=== PATIENT | male | born 1965 | race Caucasian/White ===

== ENCOUNTER 2018-02-12 12:31 | Emergency (ER) | payer MEDICARE ==
[2018-02-12 13:18] VITALS: BP 118/73
--- NOTE | 2018-02-12 14:50 | UC ---
Lower Extremity/Ankle HPI - HPI Summary HPI Summary: PT HAS BEEN CUTTING DOWN THE LATERAL SIDE OF RIGHT GREAT TOE NAIL TRYING TO GET RID OF THE SHARP EDGE. OVER THE PAST 2 WEEKS DEVELOPED REDNESS AND SWELLING OF TOE. NO FEVER. NO DRAINAGE. - History of Current Complaint Chief Complaint: UCSkin Stated Complaint: TOE SWELLING Time Seen by Provider: 02/12/18 14:03 Hx Obtained From: Patient, Family/Metal Sprayer Protective Coating - DAD Onset/Duration: Gradual Onset, Lasting Weeks, Still Present Severity Initially: Moderate Severity Currently: Moderate Pain Intensity: 7 Pain Scale Used: 0-10 Numeric Aggravating Factor(s): Standing, Ambulation Alleviating Factor(s): Rest Able to Bear Weight: Yes - Allergies/Home Medications Allergies/Adverse Reactions: Allergies Allergy/AdvReac Type Severity Reaction Status Date / Time No Known Allergies Allergy Verified 03/03/14 10:42 PMH/Surg Hx/FS Hx/Imm Hx Neurological History: Migraine Psychological History: Depression - Surgical History Surgical History: None - Family History Known Family History: Positive: Hypertension - Social History Alcohol Use: None Substance Use Type: None Smoking Status (MU): Never Smoked Tobacco Review of Systems Constitutional: Negative Skin: Other - ABSCESS RIGHT GREAT TOE Respiratory: Negative Cardiovascular: Negative Gastrointestinal: Negative All Other Systems Reviewed And Are Negative: Yes Physical Exam Triage Information Reviewed: Yes Appearance: Well-Appearing, No Pain Distress, Well-Nourished Vital Signs: Initial Vital Signs Temp 99.1 F 02/12/18 13:10 Pulse 78 02/12/18 13:10 Resp 16 02/12/18 13:10 BP 118/73 02/12/18 13:10 Pulse Ox 97 02/12/18 13:10 Vital Signs Reviewed: Yes Eyes: Positive: Conjunctiva Clear ENT: Positive: Hearing grossly normal Neck: Positive: Supple Respiratory: Positive: No respiratory distress, No accessory muscle use Cardiovascular: Positive: Pulses Normal Abdomen Description: Positive: Soft Musculoskeletal: Positive: Edema @ - RIGHT GREAT TOE Neurological: Positive: Alert Psychological: Positive: Age Appropriate Behavior Skin: Positive: Other - RIGHT GREAT TOE EDEMATOUS, ERYTHEMATOUS WITH GRANULOMATOUS TISSUE LATERAL NAIL BED. TTP Procedures - Incision and Drainage Right Toe Site: RIGHT GREAT TOE LATERAL NAILFOLD Instrument(s): Needle - 18 GAUGE Lower Extremity Course/Dx - Differential Dx/Diagnosis Provider Diagnoses: PARONYCHIA RIGHT GREAT TOE Discharge - Sign-Out/Discharge Documenting (check all that apply): Discharge/Admit/Transfer - Discharge Plan Condition: Stable Disposition: HOME Prescriptions: Cephalexin CAP* [Keflex 500 CAP*] 1,000 mg PO BID #28 cap Patient Education Materials: Parotiffanichimichelle (ED) Referrals: No Primary Care Phys,NOPCP [Primary Care Provider] - Additional Instructions: Hot soaks at least 4 times daily. Take antibiotic twice daily for full 7 days. Follow-up with a video producer. PODIATRY IN [facility] Dr. Sy Field [address] [place] Dr. Joel Gibbons. Please call his office at [phone] to make an appointment to be seen Dr. Hansel Real. Please call his office at [phone] to make an appointment to be seen CALL THE NUMBER BELOW FOR ASSISTANCE IN ESTABLISHING WITH A PCP An additional resource available to assist in finding the appropriate physician for your health care needs is the [facility] (Viviana Danielson). You may contact them by calling [phone]. - Billing Disposition and Condition Condition: STABLE Disposition: Home
--- NOTE | 2018-02-13 10:19 | PN ---
Progress Note - Progress Note Date of Service: 02/13/18 Note: patient would culture grew s aureus. patient placed on keflex. will wait for final culture for sensitivities.
--- NOTE | 2018-02-14 15:34 | UC ---
- Progress Note Progress Note: Patient wound growing MRSA (-) staph aureus and Group B Strep Agalactiae on Keflex will await sensitivity report Discharge - Sign-Out/Discharge Documenting (check all that apply): Post-Discharge Follow Up - Discharge Plan Condition: Stable Disposition: HOME Prescriptions: Cephalexin CAP* [Keflex 500 CAP*] 1,000 mg PO BID #28 cap Patient Education Materials: Paronychia (ED) Referrals: No Primary Care Phys,NOPCP [Primary Care Provider] - Additional Instructions: Hot soaks at least 4 times daily. Take antibiotic twice daily for full 7 days. 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 PODIATRY IN [facility] Dr. Sy Field [address] [facility] [address] Joel Gibbons. Please call his office at [phone] to make an appointment to be seen Dr. Hansel Real. Please call his office at [phone] to make an appointment to be seen CALL THE NUMBER BELOW FOR ASSISTANCE IN ESTABLISHING WITH A PCP An additional resource available to assist in finding the appropriate physician for your health care needs is the [facility] (Viviana Danielson). You may contact them by calling [phone]. - Billing Disposition and Condition Condition: STABLE Disposition: Home
== END 2018-02-12 14:56 | disposition home or self-care (01) ==
LOC: UCEAST 12:31
DX: L03.031 Cellulitis of right toe (principal); G43.909 Migraine, unspecified, not intractable, without status migrainosus; F32.9 Major depressive disorder, single episode, unspecified
CPT/HCPCS: 87070; 87205; 87640; 87641; 99202; G0463

== ENCOUNTER 2018-02-21 17:48 | Emergency (ER) | payer MEDICARE ==
[2018-02-21 18:10] VITALS: BP 124/81
--- NOTE | 2018-02-21 18:39 | UC ---
Elbow Pain - HPI Summary HPI Summary: c/ ingrown toe nail for the past week, second time at due to pain, has appointment with podiatry on march 01 but has continued to be painful after he completed course of keflex and pain/redness recurred. Denies chills, fever, states that he has been soaking toenail in warm water and sometimes there is discharge coming from the verge of the nailbed - History of Current Complaint Chief Complaint: UCLowerExtremity Stated Complaint: SWOLLEN FOOT Time Seen by Provider: 02/21/18 18:01 Hx Obtained From: Patient Onset/Duration: Days Severity Initially: Mild Severity Currently: Moderate Pain Intensity: 6 Location Of Pain: Is Discrete @ - big toe, right Character: Dull Aggravating Factor(s): Movement Alleviating Factor(s): Rest, Other - soaks Associated Signs And Symptoms: Positive: Negative - Allergies/Home Medications Allergies/Adverse Reactions: Allergies Allergy/AdvReac Type Severity Reaction Status Date / Time No Known Allergies Allergy Verified 02/21/18 18:10 PMH/Surg Hx/FS Hx/Imm Hx Previously Healthy: Yes - Surgical History Surgical History: None - Family History Known Family History: Positive: Hypertension - Social History Alcohol Use: None Substance Use Type: None Smoking Status (MU): Never Smoked Tobacco Review of Systems Constitutional: Negative Musculoskeletal: Edema, Other: - pain on nailbed All Other Systems Reviewed And Are Negative: Yes Physical Exam Triage Information Reviewed: Yes Appearance: Well-Appearing, No Pain Distress, Well-Nourished Vital Signs: Initial Vital Signs Temp 98.4 F 02/21/18 18:01 Pulse 62 02/21/18 18:01 Resp 18 02/21/18 18:01 BP 124/81 02/21/18 18:01 Pulse Ox 97 02/21/18 18:01 Vital Signs Reviewed: Yes Eyes: Positive: Conjunctiva Clear ENT: Positive: Hearing grossly normal Neck: Positive: Supple Respiratory: Positive: No respiratory distress Cardiovascular: Positive: Pulses Normal, Brisk Capillary Refill Musculoskeletal Exam: Other - erythema and edema lateral aspect of right big toe nailbed, no fluctuation noted, tender to touch, some crusted discharge noted on nail. Elbow Pain Course/Dx - Course Course Of Treatment: Start keflex as prescribed, f/u with podiatry as walk in, list of other podiatrists available in the area given to patient - Differential Dx/Diagnosis Provider Diagnoses: ingrown toenail Discharge - Sign-Out/Discharge Documenting (check all that apply): Discharge/Admit/Transfer - Discharge Plan Condition: Stable Disposition: HOME Prescriptions: Cephalexin CAP* [Keflex CAP*] 500 mg PO TID 5 Days #15 cap Patient Education Materials: Ingrown Nail (ED), Cephalexin (By mouth) Referrals: No Primary Care Phys,NOPCP [Primary Care Provider] - [facility] [Outside] - Billing Disposition and Condition Condition: STABLE Disposition: Home
== END 2018-02-21 19:35 | disposition home or self-care (01) ==
LOC: UCEAST 17:48
DX: L60.0 Ingrowing nail (principal); Z82.49 Family history of ischemic heart disease and other diseases of the circulatory system
CPT/HCPCS: 99212; G0463

== ENCOUNTER 2019-11-17 20:10 | Emergency (ER) | payer MEDICARE ==
[2019-11-17 21:44] VITALS: BP 141/92
[2019-11-17] MEDS ORDERED: Ibuprofen TAB* 600 MG PO ONE (22:19)
--- NOTE | 2019-11-17 22:20 | UC ---
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 HE DENIED ANY ABDOMINAL PAIN WHEN I DIRECTLY ASKED HIM. STATES THE LOW BACK PAIN SPASMS WHEN HE LEANS FORWARD. DENIES ANY NUMBNESS/ TINGLING. NO SADDLE ANESTHESIA OR LOSS OF BOWEL/BLADDER CONTROL. NO CHRONIC BACK PAIN. TAKE HYDROCODONE/APAP OCCASIONALLY FOR HEADACHE AND FLEXERIL FOR LEG CRAMPS. - History of Current Complaint Chief Complaint: UCBackPain Stated Complaint: BACK PAIN Time Seen by Provider: 11/17/19 20:54 Hx Obtained From: Patient Onset/Duration: Sudden Onset, Lasting Hours, Still Present Timing: Constant Severity Initially: Moderate Severity Currently: Moderate Pain Intensity: 5 Pain Scale Used: 0-10 Numeric Back Pain: Is Discrete @ - LOW BACK Character: Sharp, Spasmodic Aggravating Factor(s): Bending Alleviating Factor(s): Rest, Position Associated Signs And Symptoms: Positive: Negative - Allergies/Home Medications Allergies/Adverse Reactions: Allergies Allergy/AdvReac Type Severity Reaction Status Date / Time No Known Allergies Allergy Verified 11/17/19 21:40 Home Medications: Home Medications Cyclobenzaprine TAB* [Flexeril 10 MG TAB*] 5 mg PO DAILY PRN 05/20/13 [History Confirmed 02/12/18] Hydrocodone/Acetamin 5/500(NF) [Vicodin 5 MG/500 MG (NF)] 1 tab PO SEE INSTRUCTIONS PRN 05/20/13 [History Confirmed 02/12/18] Acetaminophen [Tylenol] 325 mg PO Q6H PRN 11/17/19 [History Confirmed 11/17/19] Ibuprofen TAB* [Motrin TAB* 600 MG] 1 tab PO Q6H PRN #30 tab 11/17/19 [Rx] guaiFENesin [Mucinex] 600 mg PO Q12HR PRN 11/17/19 [History Confirmed 11/17/19] PMH/Surg Hx/FS Hx/Imm Hx - Additional Past Medical History Additional PMH: LEG CRAMPS Neurological History: Migraine Psychological History: Depression - Surgical History Surgical History: None - Family History Known Family History: Positive: Hypertension - Social History Alcohol Use: None Substance Use Type: None Smoking Status (MU): Never Smoked Tobacco Review of Systems All Other Systems Reviewed And Are Negative: Yes Constitutional: Positive: Negative Skin: Positive: Negative Respiratory: Positive: Negative Cardiovascular: Positive: Negative Gastrointestinal: Positive: Negative Musculoskeletal: Positive: Myalgia Physical Exam Triage Information Reviewed: Yes Appearance: Well-Appearing, No Pain Distress, Well-Nourished Vital Signs: Initial Vital Signs Temp 98.6 F 11/17/19 21:41 Pulse 74 11/17/19 21:41 Resp 18 11/17/19 21:41 BP 141/92 11/17/19 21:41 Pulse Ox 98 11/17/19 21:41 Vital Signs Reviewed: Yes Eyes: Positive: Conjunctiva Clear ENT: Positive: Hearing grossly normal Neck: Positive: Supple Respiratory: Positive: No respiratory distress, No accessory muscle use Cardiovascular: Positive: Pulses Normal Abdomen Description: Positive: Soft Musculoskeletal: Positive: No Edema, ROM Limited @ - FLEXION BACK Neurological: Positive: Alert, Other: - NEG STRAIGHT LEG RAISE Psychological: Positive: Age Appropriate Behavior Skin: Negative: Rashes - NO REDNESS OR BRUISING Back Pain Course/Dx - Course Course Of Treatment: NO ACUTE PROCESS ON L-SPINE X-RAYS TODAY ON MY INITIAL INTERPRETATION. OFFICIAL RADIOLOGY READ IS PENDING. PATIENT HAS ACUTE LEFT LOWER PARASPINAL MUSCLE SPASM WITH FORWARD FLEXION AT THE BACK. I SUSPECT HE HAS PULLED A MUSCLE. RECOMMEND REST, STRETCHING, HEAT, MASSAGE, IBUPROFEN. HAVE ENCOURAGED HIM TO FOLLOW-UP WITH HIS NEUROLOGIST OR PCP IF HIS SYMPTOMS DO NOT IMPROVE WITH CONSERVATIVE MANAGEMENT. TO THE ER WITHOUT FAIL IF HIS SYMPTOMS WORSEN. - Differential Dx/Diagnosis Provider Diagnosis: Low back strain Discharge ED - Sign-Out/Discharge Documenting (check all that apply): Patient Departure All imaging exams completed and their final reports reviewed: No - Discharge Plan Condition: Stable Disposition: HOME Prescriptions: Ibuprofen TAB* [Motrin TAB* 600 MG] 1 tab PO Q6H PRN #30 tab PRN Reason: Pain Patient Education Materials: Low Back Strain (ED) Referrals: Guerrero Cartwright MD [Primary Care Provider] - 1 Week Destini Rey MD [Medical Doctor] - 1 Week Additional Instructions: X-RAY TODAY UNREMARKABLE FOR ACUTE BONY INJURY ON MY INITIAL INTERPRETATION. WE WILL CALL YOU IF THE RADIOLOGY READ DIFFERS. I SUSPECT YOU ARR SUFFERING FROM AN ACUTE MUSCLE STRAIN IN YOUR LOWER BACK. REST, STRETCH, HEAT, MASSAGE. IBUPROFEN NEEDED FOR DISCOMFORT. DO NOT TAKE MORE THAN 600 MG EVERY 6 HOURS. IF YOUR SYMPTOMS ARE NOT IMPROVING FOLLOW-UP WITH YOUR NEUROLOGIST OR YOUR PCP FOR FURTHER EVALUATION. YOU MAY BENEFIT FROM MORE ADVANCED IMAGING AT THAT TIME. IF YOUR SYMPTOMS BECOME ACUTELY WORSE SUCH INCREASED PAIN, NUMBNESS/TINGLING OR LOSS OF BOWEL/BLADDER CONTROL GO TO THE ER WITHOUT FAIL. - Billing Disposition and Condition Condition: STABLE Disposition: Home
--- NOTE | 2019-11-18 08:17 | UC ---
- Progress Note Progress Note: wet read correct Course/Dx - Diagnoses Provider Diagnoses: Low back strain Discharge ED - Sign-Out/Discharge Documenting (check all that apply): Post-Discharge Follow Up All imaging exams completed and their final reports reviewed: Yes - Discharge Plan Condition: Stable Disposition: HOME Prescriptions: Ibuprofen TAB* [Motrin TAB* 600 MG] 1 tab PO Q6H PRN #30 tab PRN Reason: Pain Patient Education Materials: Low Back Strain (ED) Referrals: Destini Rey MD [Medical Doctor] - 1 Week Guerrero Cartwright MD [Primary Care Provider] - 1 Week Additional Instructions: X-RAY TODAY UNREMARKABLE FOR ACUTE BONY INJURY ON MY INITIAL INTERPRETATION. WE WILL CALL YOU TOMORROW IF THE RADIOLOGY READ DIFFERS. I SUSPECT YOU ARE SUFFERING FROM AN ACUTE MUSCLE STRAIN IN YOUR LOWER BACK. REST, STRETCH, HEAT, MASSAGE. IBUPROFEN NEEDED FOR DISCOMFORT. DO NOT TAKE MORE THAN 600 MG EVERY 6 HOURS. IF YOUR SYMPTOMS ARE NOT IMPROVING FOLLOW-UP WITH YOUR NEUROLOGIST OR YOUR PCP FOR FURTHER EVALUATION. YOU MAY BENEFIT FROM MORE ADVANCED IMAGING AT THAT TIME. IF YOUR SYMPTOMS BECOME ACUTELY WORSE SUCH INCREASED PAIN, NUMBNESS/TINGLING OR LOSS OF BOWEL/BLADDER CONTROL GO TO THE ER WITHOUT FAIL. - Billing Disposition and Condition Condition: STABLE Disposition: Home
== END 2019-11-17 22:40 | disposition home or self-care (01) ==
LOC: UCEAST 20:10
DX: S39.012A Strain of muscle, fascia and tendon of lower back, initial encounter (principal); G43.909 Migraine, unspecified, not intractable, without status migrainosus; X50.9XXA Other and unspecified overexertion or strenuous movements or postures, initial encounter; Y92.9 Unspecified place or not applicable
CPT/HCPCS: 72110; 99212; A9270-GY; G0463